=== PATIENT | male | born 1995 | race African-American/Black ===

== ENCOUNTER 2020-05-20 08:33 | Emergency (ER) | payer OTHER ==
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
[2020-05-20 08:40] VITALS: BP 141/92; PULSE 96; RESP 16; TEMP 99.1
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
== END 2020-05-20 12:07 | disposition home or self-care (01) ==
LOC: EC 08:33
DX: F32.9 Major depressive disorder, single episode, unspecified (principal); V89.2XXA Person injured in unspecified motor-vehicle accident, traffic, initial encounter; Y92.410 Unspecified street and highway as the place of occurrence of the external cause
CPT/HCPCS: 70450; 72125; 82075; 99285